=== PATIENT | female | born 1955 | race Caucasian/White ===

== ENCOUNTER → 2017-04-19 | Outpatient (CLI) | payer BC ==
[~2017-04-19] MED LIST: ALLEGRA PO; FLONASE16 GM; LEXAPRO PO; PROZAC PO; SINGULAIR PO; SYNTHROID112 MCG PO
--- NOTE | ~2017-04-19 | MY29 ---
[facility] A Service of [facility] RADIOLOGY TEXT RESULTS PATIENT: ISRA ROCHA LOCATION: [facility] : 55 UNIT #: [id number] AGE: [address]: Gabriela Pillai MD SEX: F ORDER DR: [id number] [facility] [address]. [place], [place] [address] [id number] O MR#: [id number] Acc #: [id number] NAME: SIRA ROCHA. : 1955 SEX: F STUDY DATE/TIME: 04/19/2017 10:19 UNIT: [facility] ROOM: STUDY DESCRIPTION: MY FIORELLA SCREENING W/ CAD BILAT Attending Physician: Gabriela Pillai M.D. Ordering Physician: Gabriela Pillai M.D. Primary Care Physician: Gabriela Pillai M.D. MEDICAL IMAGING REPORT This report is preliminary unless electronic signature is present EXAM Digital screening mammogram, 04/19/2017, [facility]. HISTORY 62-year-old woman no risk elevation. Annual screen. COMPARISON Mammograms date to 08/06/2006 with most recent 04/14/2016. TECHNIQUE Digital imaging of each breast was completed utilizing screening protocol. Review includes FDA-approved CAD device. FINDINGS Breast parenchyma is partially fatty replaced bilaterally. Subareolar duct prominence is slightly dominant in the left breast and stable. I see no interval occurring breast mass. There are no suspicious microcalcifications and no focal architectural distortion. IMPRESSION Negative mammogram. Annual screening recommended. Patients over the age of 40 are entered into a reminder system with target due date for the next mammogram. A result letter will also be sent to the patient. BIRADS: 1 Negative Dictated by... Fuad Valenzuela M.D. [facility] A Service [facility] RADIOLOGY TEXT RESULTS PATIENT: ISRA ROCHA LOCATION: [facility] : 55 UNIT #: [id number] AGE: [address]: Gabriela Pillai MD SEX: F ORDER DR: THIS IS AN ELECTRONICALLY VERIFIED REPORT Fuad Valenzuela M.D. at 04/20/2017 8:05 AM Uma TD: 04/19/2017 17:27 JOB #: [id number] MEDICAL IMAGING REPORT Page 1 of 1 COPY
== END | disposition home or self-care (01) ==
LOC: CWCC 09:47
DX: Z12.31 Encounter for screening mammogram for malignant neoplasm of breast (principal)
CPT/HCPCS: G0202